=== PATIENT | female | born 1970 | race Caucasian/White ===

== ENCOUNTER 2017-03-15 19:26 | Emergency (ER) | payer SELFPAY ==
[~2017-03-15] VITALS: Ht 162.6 cm; Wt 73.5 kg
--- NOTE | 2017-03-15 19:27 | NUR ---
BIB RA. SEE INITIAL TRIAGE FOR NOTES.
[2017-03-15] MEDS ORDERED: LORAZEPAM INJ 2 MG/ML VIAL ONE (19:44)
[2017-03-15] MEDS ORDERED: HALOPERIDOL LACTATE INJ 5 MG/ML VIAL ONE (19:47)
[2017-03-15] MEDS ORDERED: diphenhydrAMINE HCL 50 MG/ML VIAL ONE (19:47)
[2017-03-15 19:51] LABS: BASOPHILS % (AUTO) 0.5 % (0.0-2.0); EOSINOPHILS # (AUTO) 0.1 /CMM (0.0-0.7); EOSINOPHILS % (AUTO) 1.2 % (0.0-6.0); HEMATOCRIT 37 % (33-45); HEMOGLOBIN 11.9 g/dL (11.5-14.8); LYMPHOCYTES # (AUTO) 2.3 /CMM (0.8-4.8); LYMPHOCYTES % (AUTO) 35.7 % (20.0-44.0); MEAN CORPUSCULAR HEMOGLOBIN 26 PG (26.0-33.0); MEAN CORPUSCULAR HGB CONC 32 g/dl (31.0-36.0); MEAN CORPUSCULAR VOLUME 80 fL (82-100); MONOCYTES # (AUTO) 0.5 /CMM (0.1-1.30); MONOCYTES % (AUTO) 7.9 % (2.0-12.0); NEUTROPHILS # (AUTO) 3.7 /CMM (1.8-8.9); NEUTROPHILS % (AUTO) 54.7 % (43.0-81.0); PLATELET COUNT (AUTO) 212 /CMM (150-450); RDW COEFFICIENT OF VARIATION 23.1 (11.5-15.0); RED BLOOD CELL COUNT(AUTO) 4.64 MIL/uL (4.0-5.2); WHITE BLOOD COUNT (AUTO) 6.6 K/uL (4.3-11.0)
[2017-03-15 19:59] LABS: CALCIUM, SERUM 8.7 mg/dL (8.5-10.1); CREATININE 1.1 mg/dL (0.6-1.3); POTASSIUM 3.7 mmol/L (3.5-5.1)
[2017-03-15] MEDS ORDERED: LORAZEPAM INJ 2 MG/ML VIAL IM ONE (20:00)
[2017-03-15 20:05] LABS: ALBUMIN 3.6 g/dL (3.4-5.0); BILIRUBIN,DIRECT 0.1 mg/dL (0.0-0.2); BILIRUBIN,TOTAL 0.3 mg/dL (0.2-1.0)
[2017-03-15 20:06] LABS: SALICYLATE 1.7 mg/dL (2.8-20.0)
[2017-03-15] MEDS ORDERED: IV NS 0.9% 1,000 ML BAG IV ONE (20:30)
--- NOTE | 2017-03-15 20:40 | NUR ---
STILL YELLING AND SCREAMING. GIVEN WATER. NO S/S OF ACUTE DISTRESS NOTED.
[2017-03-15] MEDS ORDERED: IV SET PRIMARY 1 EA INFUS.SET MC ONE (21:34)
[2017-03-15] MEDS ORDERED: IV NS 0.9% 1,000 ML ONE (21:34)
--- NOTE | 2017-03-15 21:45 | NUR ---
WAKES UP INTERMITTENTLY AND FALLS RIGHT BACK TO SLEEP. NO S/S OF DISTRESS NOTED. RESP EVEN AND UNLABORED.
[2017-03-15] MEDS ORDERED: diphenhydrAMINE HCL 50 MG/ML VIAL IM ONE (22:00)
[2017-03-15] MEDS ORDERED: HALOPERIDOL LACTATE INJ 5 MG/ML VIAL IM ONE (22:00)
--- NOTE | 2017-03-15 22:12 | NUR ---
REASSESSED AND REMAINS RESTING WITH NO S/S OF DISTRESS. RESP EVEN AND UNLABORED.
--- NOTE | 2017-03-15 23:01 | NUR ---
URINE COLLECTED AND SENT TO LAB
[2017-03-15 23:36] LABS: APPEARANCE,URINE CLEAR (CLEAR); BILIRUBIN,URINE NEGATIVE (NEGATIVE); BLOOD, URINE TRACE-INTA Ery/uL (NEGATIVE); COLOR,URINE YELLOW (YELLOW); KETONES,URINE NEGATIVE (NEGATIVE); LEUKOCYTE ESTERASE ,URINE NEGATIVE (NEGATIVE); NITRITE, URINE NEGATIVE (NEGATIVE); PROTEIN,URINE TRACE mg/dl (NEGATIVE); UGLUCOSE NEGATIVE (NEGATIVE)
[2017-03-15 23:39] LABS: PREGNANCY TEST URINE QUAL NEGATIVE (NEGATIVE)
[2017-03-15 23:45] LABS: BACTERIA,URINE None seen /HPF (None Seen); RBC,URINE 0-2 /HPF (0-2); WBC,URINE 0-2 /HPF (0-3)
[2017-03-15 23:46] LABS: SQUAMOUS EPITHELIAL CELL,UR Few /HPF (None Seen)
--- NOTE | 2017-03-16 00:14 | NUR ---
REASSESSED AND STILL RESTING WITH EYES CLOSED. APPEARS COMFORTABLE. NAD NOTED. RESP EVEN AND UNLABORED.
--- NOTE | 2017-03-16 01:12 | NUR ---
NO CHANGES FROM PREVIOUS ASSESSMENT. RESP EVEN AND UNLABORED. STILL MONITORED.
--- NOTE | 2017-03-16 02:22 | NUR ---
REPOSITIONED FOR COMFORT. NAD NOTED. RESP EVEN AND UNLABORED. STILL MONITORED.
--- NOTE | 2017-03-16 03:44 | NUR ---
INTERMITTENTLY WAKES UP; TALKS TO SELF AND FALLS RIGHT BACK TO SLEEP. NAD NOTED.
--- NOTE | 2017-03-16 04:24 | NUR ---
LAYING SUPINE WITH NO S/S OF DISTRESS. ON MONITOR. REPS EVEN AND UNLABORED.
--- NOTE | 2017-03-16 05:49 | NUR ---
PT REMEMBERS HER NAMES BUT STATES "I DONT KNOW" TO THE REST OF QUESTIONS ASKED. NOTIFIED.
--- NOTE | 2017-03-16 06:04 | NUR ---
RESTING QUIETLY WITH NO S/S OF DISTRESS. RESP EVEN AND UNLABORED. NAD NOTED
--- NOTE | 2017-03-16 12:00 | NUR ---
Patient is resting comfortably in bed with eyes closed. Easily aroused. VSS
--- NOTE | 2017-03-16 21:41 | NUR ---
PT AAOX2. PT CLEANED AND ASSISTED IN CHANGING TO HER CLOTHES. ABLE TO TOLERATE PO FLUIDS. VSS. ABLE TO AMBULATE WITH A STEADY GAIT SEEN BY DR. BUTLER.
[2017-03-16 21:53] VITALS: BP 167/63
--- NOTE | 2017-03-16 21:53 | NUR ---
Patient discharged to home in stable condition. Written and verbal after care instructions given. Patient verbalizes understanding of instruction. Pt ambulatory with a steady gait.
== END 2017-03-16 21:53 | disposition home or self-care (01) ==
LOC: ER 19:33
DX: F10.129 Alcohol abuse with intoxication, unspecified (principal); E86.0 Dehydration; R79.89 Other specified abnormal findings of blood chemistry; F20.9 Schizophrenia, unspecified; F31.9 Bipolar disorder, unspecified
CPT/HCPCS: 36415; 80048-TC; 80076-TC; 80305; 81000-TC; 84703-TC; 85025-TC; A4606; A6402; G0480; J1200; J1630; J2060; J7030; Z7610